=== PATIENT | female | born 1975 | race Caucasian/White ===

== ENCOUNTER 2018-12-09 08:08 | Emergency (ER) | payer OTHER ==
--- NOTE | 2018-12-09 09:41 | EDPHYS ---
Physician Documentation [facility] Name: Maddie Briones Age: 43 yrs Sex: Female : 1975 Arrival Date: 12/09/2018 Time: 08:11 Bed 14 Private MD: Oscar Morales ED Physician Chinmay Mccann HPI: 12/09 08:32 This 43 yrs old Female presents to ER via Unassigned with complaints of Left pm1 Ankle Injury. 08:32 The patient presents with pain. The complaints affect the left ankle. Onset: The pm1 symptoms/episode began/occurred 2 week(s) ago. Context: The problem was sustained at home, resulted from a mis-step by the patient, step, The mechanism of injury is unknown. The patient can partially bear weight on the affected extremity. the patient is able to ambulate. Associated signs and symptoms: Pertinent positives: swelling, Pertinent negatives: fever, numbness, tingling. Modifying factors: the symptoms are aggravated by weight bearing. Severity of symptoms: in the emergency department the symptoms are unchanged. The patient has not experienced similar symptoms in the past. The patient has not recently seen a physician, the patient's primary care provider is Dr. Morales. Patient stepped down a step and her foot slipped forward. She landed on her knees and buttocks with her lower legs folded beneath her. had pain to bilateral knees and right ankle/foot that have resolved but left ankle pain persists. No head injury, headache, LOC, neck pain. Historical: - Allergies: 08:36 No Known Allergies; ph - Home Meds: 08:36 montelukast 10 mg oral tab 1 tab once daily [Active]; fenofibrate 54 mg oral tab 1 tab ph once daily [Active]; Rebecca 180 mg Oral tab 1 tab once daily [Active]; Calci-Chew Oral [Active]; - PMHx: 08:36 Hypertension; ph - Immunization history:: Adult Immunizations unknown. - Social history:: Smoking status: Patient/guardian denies using tobacco. - Ebola Screening: : No symptoms or risks identified at this time. ROS: 08:35 Constitutional: Negative for fever, chills, and weight loss, Eyes: Negative for injury, pm1 pain, redness, and discharge, ENT: Negative for injury, pain, and discharge, Neck: Negative for injury, pain, and swelling, Cardiovascular: Negative for chest pain, palpitations, and edema, Respiratory: Negative for shortness of breath, cough, wheezing, and pleuritic chest pain, Abdomen/GI: Negative for abdominal pain, nausea, vomiting, diarrhea, and constipation, Back: Negative for injury and pain, : Negative for injury, bleeding, discharge, and swelling. 08:35 Skin: Negative for injury, rash, and discoloration, Neuro: Negative for headache, weakness, numbness, tingling, and seizure. 08:35 MS/extremity: Positive for pain, of the left lateral ankle, Negative for decreased range of motion, deformity. Exam: 08:35 Constitutional: This is a well developed, well nourished patient who is awake, alert, pm1 and in no acute distress. Head/Face: Normocephalic, atraumatic. Eyes: Pupils equal round and reactive to light, extra-ocular motions intact. Lids and lashes normal. Conjunctiva and sclera are non-icteric and not injected. Cornea within normal limits. Periorbital areas with no swelling, redness, or edema. ENT: Nares patent. No nasal discharge, no septal abnormalities noted. Tympanic membranes are normal and external auditory canals are clear. Oropharynx with no redness, swelling, or masses, exudates, or evidence of obstruction, uvula midline. Mucous membranes moist. Neck: Trachea midline, no thyromegaly or masses palpated, and no cervical lymphadenopathy. Supple, full range of motion without nuchal rigidity, or vertebral point tenderness. No Meningismus. Chest/axilla: Normal chest wall appearance and motion. Nontender with no deformity. No lesions are appreciated. Cardiovascular: Regular rate and rhythm with a normal S1 and S2. No gallops, murmurs, or rubs. Normal PMI, no JVD. No pulse deficits. Respiratory: Lungs have equal breath sounds bilaterally, clear to auscultation and percussion. No rales, rhonchi or wheezes noted. No increased work of breathing, no retractions or nasal flaring. Abdomen/GI: Soft, non-tender, with normal bowel sounds. No distension or tympany. No guarding or rebound. No evidence of tenderness throughout. Back: No spinal tenderness. No costovertebral tenderness. Full range of motion. Skin: Warm, dry with normal turgor. Normal color with no rashes, no lesions, and no evidence of cellulitis. 08:35 Musculoskeletal/extremity: Extremities: grossly normal except: noted in the left lateral ankle: swelling, tenderness. 08:35 Neuro: Orientation: is normal, Motor: is normal, moves all fours. Vital Signs: 08:33 BP 167 / 109; Pulse 91; Resp 18; Temp 98.4; Pulse Ox 96% on R/A; ph 09:13 BP 155 / 88; Pulse 86; Resp 18; Pulse Ox 97% on R/A; ph Procedures: 10:15 Splinting: Splint applied to left ankle using Orthoglass splint, applied by tech. pm1 Examined by me, post splint application: neurovascular intact, 2+ distal pulses palpable, brisk capillary refill noted, Patient tolerated well. MDM: 08:25 Patient medically screened. pm1 09:37 Data reviewed: vital signs. Data interpreted: Pulse oximetry: on room air is 97 %. pm1 Interpretation: normal. Counseling: I had a detailed discussion with the patient and/or guardian regarding: the historical points, exam findings, and any diagnostic results supporting the discharge/admit diagnosis, radiology results, the need for outpatient follow up, for definitive care, a orthopedic surgeon, to return to the emergency department if symptoms worsen or persist or if there are any questions or concerns that arise at home. 04 08:31 Order name: Ankle Left 3 View XRAY; Complete Time: 10:05 pm1 04 09:37 Order name: Splint - Ankle: Orthoglass: Stirrup; Complete Time: 09:46 pm1 12/09 09:37 Order name: Splint - Ankle: Posterior; Complete Time: 09:45 pm1 Administered Medications: No medications were administered Disposition: 12/09/18 09:40 Discharged to Home. Impression: Oblique fracture of distal left fibula with minimal displacement. - Condition is Stable. - Discharge Instructions: Cast or Splint Care, Adult, Fibular Ankle Fracture Treated With or Without Immobilization, Adult, How to Use a Walker. - Prescriptions for Tylenol- Codeine #3 300-30 mg Oral Tablet - take 2 tablets by ORAL route every 6 hours As needed; 20 tablet. - Medication Reconciliation Form, Thank You Letter, Antibiotic Education, Prescription Opioid Use form. - Follow up: Emergency Department; When: As needed; Reason: Worsening of condition. Follow up: Private Physician; When: 2 - 3 days; Reason: Recheck today's complaints, Continuance of care, Re-evaluation by your physician. - Problem is new. - Symptoms have improved. Addendum: 12/12/2018 08:18 Co-signature as Attending Physician, Chinmay Mccann MD I agree with the assessment and k dr plan of care. Signatures: Dispatcher [employer] EDMI Chinmay Mccann MD MD [facility] Christal Upton, RN RN ph Jeff Magallanes, GLASS SELECTOR GLASS SELECTOR pm1 Corrections: (The following items were deleted from the chart) 12/09 10:12 09:40 12/09/2018 09:40 Discharged to Home. Impression: Displaced fracture of lateral pm1 malleolus of left fibula. Condition is Stable. Forms are Medication Reconciliation Form, Thank You Letter, Antibiotic Education, Prescription Opioid Use. Follow up: Emergency Department; When: As needed; Reason: Worsening of condition. Follow up: Private Physician; When: 2 - 3 days; Reason: Recheck today's complaints, Continuance of care, Re-evaluation by your physician. Problem is new. Symptoms have improved. pm1 10:32 10:12 12/09/2018 09:40 Discharged to Home. Impression: Oblique fracture of distal left ph fibula with minimal displacement. Condition is Stable. Discharge Instructions: Cast or Splint Care, Adult, Fibular Ankle Fracture Treated With or Without Immobilization, Adult. Prescriptions for Tylenol-Codeine #3 300-30 mg Oral Tablet - take 2 tablets by ORAL route every 6 hours As needed; 20 tablet. and Forms are Medication Reconciliation Form, Thank You Letter, Antibiotic Education, Prescription Opioid Use. Follow up: Emergency Department; When: As needed; Reason: Worsening of condition. Follow up: Private Physician; When: 2 - 3 days; Reason: Recheck today's complaints, Continuance of care, Re-evaluation by your physician. Problem is new. Symptoms have improved. pm1
--- NOTE | 2018-12-09 09:41 | ER ---
Nurse's Notes [facility] Name: Maddie Briones Age: 43 yrs Sex: Female : 1975 Arrival Date: 12/09/2018 Time: 08:11 Bed 14 Private MD: Oscar Morales Diagnosis: Oblique fracture of distal left fibula with minimal displacement Presentation: 12/09 08:28 Presenting complaint: Mother states: Fell approx 10 days ago stepping down from a curb, ph landed on top of feet, states, " Her R foot feels better but her L one is still bothering her." Pt reports pain to top of L foot. Transition of care: patient was not received from another setting of care. Onset of symptoms. Risk Assessment: Do you want to hurt yourself or someone else? Patient reports no desire to harm self or others. Initial Sepsis Screen: Does the patient meet any 2 criteria? No. Patient's initial sepsis screen is negative. Does the patient have a suspected source of infection? No. Patient's initial sepsis screen is negative. Care prior to arrival: None. 08:28 Method Of Arrival: Wheelchair ph 08:28 Acuity: TERRANCE 4 ph Triage Assessment: 08:38 General: Appears in no apparent distress. comfortable, well groomed, Behavior is calm, ph cooperative, appropriate for age. Pain: Complains of pain in left lateral ankle and left medial ankle. Neuro: Level of Consciousness is awake, alert, obeys commands, Oriented to person, place, time, situation. Cardiovascular: Capillary refill < 3 seconds in bilateral fingers Patient's skin is warm and dry. Respiratory: Airway is patent Respiratory effort is even, unlabored, Respiratory pattern is regular, symmetrical. Derm: Skin is intact, is healthy with good turgor, Skin is pink, warm \\T\\ dry. Musculoskeletal: Circulation, motion, and sensation intact. Range of motion: intact in all extremities. Historical: - Allergies: 08:36 No Known Allergies; ph - Home Meds: 08:36 montelukast 10 mg oral tab 1 tab once daily [Active]; fenofibrate 54 mg oral tab 1 tab ph once daily [Active]; Rebecca 180 mg Oral tab 1 tab once daily [Active]; Calci-Chew Oral [Active]; - PMHx: 08:36 Hypertension; ph - Immunization history:: Adult Immunizations unknown. - Social history:: Smoking status: Patient/guardian denies using tobacco. - Ebola Screening: : No symptoms or risks identified at this time. Screenin:37 Abuse screen: Denies threats or abuse. Denies injuries from another. Nutritional ph screening: No deficits noted. Tuberculosis screening: No symptoms or risk factors identified. Fall Risk Fall in past 12 months (25 points). No secondary diagnosis (0 pts). No IV (0 pts). Ambulatory Aid- None/Bed Rest/Nurse Assist (0 pts). Gait- Normal/Bed Rest/Wheelchair (0 pts) Mental Status- Oriented to own ability (0 pts). Total Honeycutt Fall Scale indicates Low Risk Score (25-44 pts). Fall prevention measures have been instituted. Family Present and informed to notify staff if they need to leave bedside. Assessment: 09:14 General: No changes from previously documented assessment, see triage note. ph 10:30 Reassessment: Patient appears in no apparent distress at this time. Patient and/or ph family updated on plan of care and expected duration. Pain level reassessed. Patient is alert, oriented x 3, equal unlabored respirations, skin warm/dry/pink. Vital Signs: 08:33 BP 167 / 109; Pulse 91; Resp 18; Temp 98.4; Pulse Ox 96% on R/A; ph 09:13 BP 155 / 88; Pulse 86; Resp 18; Pulse Ox 97% on R/A; ph ED Course: 08:11 Patient arrived in ED. rg4 08:11 Oscar Morales DO is Private Physician. rg4 08:24 Jeff Magallanes NP is PHCP. pm1 08:24 Chinmay Mccann MD is Attending Physician. pm1 08:27 Christal Upton RN is Primary Nurse. ph 08:33 Triage completed. ph 08:36 Arm band placed on. ph 08:37 Patient has correct armband on for positive identification. Bed in low position. Call light in reach. Side rails up X 1. Pulse ox on. NIBP on. 09:17 X-ray completed. Portable x-ray completed in exam room. jr1 09:19 Ankle Left 3 View XRAY In Process Unspecified. EDMS 09:46 Orthoglass splint: Posterior short lleg splint applied on left leg. stirrup splint mh5 applied on left leg. 10:30 No provider procedures requiring assistance completed. Patient did not have IV access ph during this emergency room visit. Administered Medications: No medications were administered Outcome: 09:40 Discharge ordered by . pm1 10:32 Patient left the ED. ph 10:32 Discharged to home via wheelchair, with family. ph 10:32 Condition: good 10:32 Discharge instructions given to patient, family, Instructed on discharge instructions, follow up and referral plans. medication usage, Demonstrated understanding of instructions, follow-up care, medications, Prescriptions given X 1. Signatures: Dispatcher [employer] EDMS Lilia Dennis jr1 Christal Upton RN RN Jeff Arce, RERE REFURBISH TECHNICIAN pm1 Jacinta Fernández Maria [facility]
--- NOTE | 2018-12-09 09:45 | RAD REPORT ---
EXAM DESCRIPTION: RAD - Ankle Left 3 View - 12/09/2018 9:19 am CLINICAL HISTORY: Fall 10 days earlier, ankle pain COMPARISON: None. FINDINGS: Oblique fracture is present through the distal fibula. Early callus formation is identifia ble. No angulation deformity. There is 1- 2 mm of lateral displacement. Distal tibia is intact. There is very slight widening of the medial margin of the tibiotalar joint space. No joint effusion seen. No joint space narrowing. Patient appears to have a flatfoot configuration. This is not fully assesse d in the absence of weight-bearing. No plantar spur. IMPRESSION: Oblique fracture distal fibula with minimal displacement and no measurable angulation de formity. Early callus formation evident.
== END 2018-12-09 10:32 | disposition home or self-care (01) ==
LOC: ER 08:08
PROC: 2W3RX1Z Immobilization of Left Lower Leg using Splint (ICD-10-PCS; principal; 2018-12-09)
DX: S82.432A Displaced oblique fracture of shaft of left fibula, initial encounter for closed fracture (principal); W01.0XXA Fall on same level from slipping, tripping and stumbling without subsequent striking against object, initial encounter; Y93.9 Activity, unspecified; Y92.009 Unspecified place in unspecified non-institutional (private) residence as the place of occurrence of the external cause; I10 Essential (primary) hypertension
CPT/HCPCS: 99284

== ENCOUNTER 2022-04-30 10:20 | Emergency (ER) | payer OTHER ==
--- OUTSIDE RECORDS SUMMARY | 2022-04-30 10:22 | XMS REPORT | Continuity of Care Document ---
:1975 Author Organization [facility] t Address [address] [place] [address] Care Team Providers Name Role Phone Libby Levine Attending Clinician Unavailable Problems This patient has no known problems. Allergies, Adverse Reactions, Alerts Allergy Allergy Status Severity Reaction(s) Onset Inactive Treating Comm ents Source Name Type Date Date Clinician Lisinopr Adverse Active cough Common il Reaction [facility] Medications Ordered Filled Start Stop Current Ordering Indication Dosage Frequency Signature Comments Components Source Medication Medication Date Date Medication? Clinician (SIG) Name Name Glucometer Glucometer 2020-0 2020- No Libby one Common [id number] [facility] 00:00: 00:00 - [facility] :00 [facility] Calcium Calcium 2019-0 Yes Libby 1 tab Commo n 4-17 [facility] 00:00: - [facility] 00 [facility] Montelukast Montelukast Yes Libby take one Common Sodium Sodium Starr tablet by Spiri t mouth once - [facility] daily in [facility] Zyrtec Zyrtec Yes Libby 1 tablet Common Allergy Allergy Starr [facility] Losartan Losartan Yes Libby 1 tablet Co mmon Potassium Potassium St[facility] Spir it [facility] Fenofibrate Fenofibrate Yes Libby 1 tablet Common Starr with food [facility] Procedures This patient has no known procedures. Encounters Start End Encounter Admission Attending Care Care Encounter Source Date/Time Date/Time Type Type Clinicians Facility Department ID 2022-04-16 Outpatient CLOVER Levine [facility] [id number] Common 11:29:00 Libby [facility] 2021-10-07 Outpatient Starr, STLMLC ST[facility] [id number] Common 08:16:01 Libby [facility] 2021-09-24 Outpatient Starr, STLMLC STLMLC [id number] Common 14:30:58 Libby [facility] 2021-09-24 Outpatient Starr, STLMLC STLMLC [id number] Common 11:35:55 Libby [id number] [facility] 2021-09-24 Outpatient Starr, STLMLC STLMLC [id number] Common 11:20:48 Libby [id number] [facility] 2021-09-24 Outpatient Starr, STLMLC STLMLC [id number] Common 11:20:35 Libby [id number] [facility] 2021-09-24 Outpatient Starr, STLMLC STLMLC [id number] Common 10:58:46 Libby [id number] [facility] 2021-09-24 Outpatient Starr, STLMLC STLMLC [id number] Common 10:58:15 Libby [id number] [facility] 2022-04-20 2022-04-20 ambulatory STLMLC STL[facility] [id number] Common 00:00:00 00:00:00 [facility] 2022-03-23 2022-03-23 ambulatory STLMLC STLMLC [id number] Common 00:00:00 00:00:00 [facility] 2021-10-24 2021-10-24 ambulatory STLMLC STL[facility]C [id number] Common 00:00:00 00:00:00 [facility] 2021-10-07 2021-10-07 ambulatory STLMLC STLMLC [id number] Common 00:00:00 00:00:00 [facility] 2021-09-05 2021-09-05 ambulatory STLMLC STLMLC [id number] Common 00:00:00 00:00:00 [facility] 2021-03-05 2021-03-05 Outpatient STLMLC STLMLC [id number] Common 00:00:00 00:00:00 [facility] 2021-03-05 2021-03-05 Outpatient STLMLC STLMLC [id number] Common 00:00:00 00:00:00 [facility] 2021-02-26 2021-02-26 Outpatient STLMLC STLMLC [id number] Common 00:00:00 00:00:00 [facility] 2021-01-06 2021-01-06 Outpatient STLMLC STLMLC [id number] Common 00:00:00 00:00:00 [facility] 2020-10-04 2020-10-04 Outpatient STLMLC STLMLC [id number] Common 00:00:00 00:00:00 [facility] 2020-09-04 2020-09-04 Outpatient STLMLC STLMLC [id number] Common 00:00:00 00:00:00 [facility] 2020-04-05 2020-04-05 [facility] [id number] Common 09:40:00 09:40:00 [facility] [address] [facility] 2020-01-11 2020-01-11 [facility] [id number] Common 09:08:00 09:08:00 [facility] [address] [facility] 2020-01-04 2020-01-04 [facility] [id number] Common 08:40:00 08:40:00 [facility] [address] [facility] [address] [facility] 2019-10-06 2019-10-06 [facility] [id number] Common 10:13:00 10:13:00 [facility] [address] [facility] [address] [facility] 2019-09-05 2019-09-05 [facility] [id number] Common 13:20:00 13:20:[address] [place] [facility] [address] [facility] 2019-07-05 2019-07-05 [facility] [id number] Common 15:50:00 15:50:00 t Chaim riggins [facility] 2019-07-05 2019-07-05 [facility] [id number] Common 15:48:00 15:48:00 [place] [facility] 2019-06-08 2019-06-08 [facility] [id number] Common 11:00:00 11:00:00 [place] [place] [facility] 2018-12-14 2018-12-14 [facility] [id number] Common 14:30:00 14:30:00 [facility] Results This patient has no known results.
[2022-04-30] MEDS ORDERED: ASPIRIN 81 MG CHEWABLE TABLET ONE (10:39)
[2022-04-30 11:00] LABS: Absolute Lymphocytes (CBC) 3.2 K/uL (0.7-4.9); Hematocrit 42.1 % (36.0-45.0); Lymphocytes % 37.1 % (15.3-44.8); MPV 7.6 fL (7.6-11.3); RBC Red Blood Cell Count 5.08 M/uL (3.86-4.86)
--- NOTE | 2022-04-30 11:00 | RAD REPORT ---
EXAM DESCRIPTION: RAD - Chest Single View - 04/30/2022 10:43 am CLINICAL HISTORY: CHEST PAIN, shortness of breath COMPARISON: None TECHNIQUE: AP portable chest image was obtained 04/30/2022 10:43 am . FINDINGS: Lungs are clear. Heart and vasculature are normal. No measurable pleural effusion and no p neumothorax. No acute bony abnormality seen. No acute aortic findings suspected. IMPRESSION: No acute cardiopulmonary process.
[2022-04-30 11:12] LABS: BUN Blood Urea Nitrogen 10 mg/dL (7-18); Bicarbonate 29 mmol/L (21-32); Glomerular Filtration Rate 107 ml/min (=/>90); Glucose Level 122 mg/dL (74-106); Potassium 3.9 mmol/L (3.5-5.1); Sodium Level 141 mmol/L (136-145)
[2022-04-30 11:14] LABS: Troponin High Sensitivity < 3.0 pg/mL (<58.9)
[2022-04-30] MEDS ORDERED: MAGNES/ALUMIN/SIMET 30ML UCUP ONE (12:10)
[2022-04-30] MEDS ORDERED: LIDOCAINE VISCOUS 2% SOLN 15 ML UDC ONE (12:10)
[2022-04-30] MEDS ORDERED: FAMOTIDINE 20 MG TAB ONE (12:10)
--- NOTE | 2022-04-30 14:44 | ER ---
Nurse's Notes [facility] Name: Maddie Briones Age: 47 yrs Sex: Female : 1975 Arrival Date: 04/30/2022 Time: 10:21 Bed 5 Private MD: VELIA BLANCO Diagnosis: Chest pain, unspecified Presentation: 04/30 10:29 Chief complaint: Parent and/or Guardian states: Chest pain that started approx 30 ph minutes ago, was walking around store w/ mother, also c/o SOB and dizziness. Coronavirus screen: Vaccine status: Patient reports receiving the 2nd dose of the covid vaccine. Ebola Screen: No symptoms or risks identified at this time. Initial Sepsis Screen: Does the patient meet any 2 criteria? No. Patient's initial sepsis screen is negative. Does the patient have a suspected source of infection? No. Patient's initial sepsis screen is negative. Risk Assessment: Do you want to hurt yourself or someone else? Patient reports no desire to harm self or others. Onset of symptoms was April 30, 2022. 10:29 Method Of Arrival: Ambulatory ph 10:29 Acuity: TERRANCE 3 ph Triage Assessment: 10:31 General: Appears in no apparent distress. comfortable, Behavior is calm, cooperative, ph appropriate for age. Pain: Complains of pain in chest. Historical: - Allergies: 10:30 No Known Allergies; ph - Home Meds: 11:41 fenofibrate 54 mg Oral tab 1 tab once daily [Active]; montelukast 10 mg Oral tab 1 tab vg1 once daily [Active]; losartan oral [Active]; Calcium [Active]; Zyrtec Oral [Active]; turmeric oral [Active]; Vitamin C Oral [Active]; - PMHx: 10:30 Hypertension; ph - Immunization history:: Adult Immunizations up to date. - Social history:: Smoking status: Patient denies any tobacco usage or history of. Screenin:30 Abuse screen: Denies threats or abuse. Nutritional screening: No deficits noted. vg1 Tuberculosis screening: No symptoms or risk factors identified. Fall Risk No fall in past 12 months (0 pts). No secondary diagnosis (0 pts). IV access (20 points). Ambulatory Aid- None/Bed Rest/Nurse Assist (0 pts). Gait- Normal/Bed Rest/Wheelchair (0 pts) Mental Status- Oriented to own ability (0 pts). Total Honeycutt Fall Scale indicates No Risk (0-24 pts). Assessment: 10:30 General: Appears in no apparent distress. uncomfortable, Behavior is calm, cooperative. vg1 Pain: Complains of pain in anterior aspect of right upper chest Pain does not radiate. Pain currently is 7 out of 10 on a pain scale. Quality of pain is described as sharp, Pain began 1 hour ago. Neuro: Level of Consciousness is awake, alert, obeys commands, Oriented to person, place, time, situation, Reports dizziness. Cardiovascular: Patient's skin is warm and dry. Chest pain quality is sharp, is located in right began 1 hour prior to arrival. Respiratory: Reports shortness of breath Airway is patent Respiratory effort is even, unlabored. GI: Patient currently denies nausea, vomiting. : No signs and/or symptoms were reported regarding the genitourinary system. EENT: No signs and/or symptoms were reported regarding the EENT system. Derm: Skin is pink, warm \T\ dry. Musculoskeletal: Circulation, motion, and sensation intact. 11:40 Reassessment: Patient appears in no apparent distress at this time. Patient and/or vg1 family updated on plan of care and expected duration. Pain level reassessed. Patient is alert, oriented x 3, equal unlabored respirations, skin warm/dry/pink. denies CP stated, Epigastric pain; pt mother stated pt has a hernia and is concerned that may be the reason for pain; provider notified. 13:52 Reassessment: Patient appears in no apparent distress at this time. No changes from vg1 previously documented assessment. Patient and/or family updated on plan of care and expected duration. Pain level reassessed. Patient is alert, oriented x 3, equal unlabored respirations, skin warm/dry/pink. Vital Signs: 10:29 BP 141 / 89; Pulse 98; Resp 18; Temp 98.1; Pulse Ox 99% on R/A; Weight 89.81 kg; Height ph 5 ft. 10 in. (177.80 cm); 11:30 BP 122 / 86; Pulse 88; Resp 17; Pulse Ox 96% on R/A; vg1 12:30 BP 139 / 82; Pulse 111; Resp 24; Pulse Ox 95% on R/A; vg1 13:45 BP 127 / 91; Pulse 87; Resp 18; Pulse Ox 96% on R/A; vg1 15:15 BP 137 / 82; Pulse 80; Resp 16; Pulse Ox 99% on R/A; vg1 10:29 Body Mass Index 28.41 (89.81 kg, 177.80 cm) ph ED Course: 10:21 Patient arrived in ED. rg4 10:21 Gurwinder Zaldivar DO is Attending Physician. ms3 10:21 VELIA BLANCO is Private Physician. rg4 10:26 Anaya Fernández, RN is Primary Nurse. vg1 10:30 Triage completed. ph 10:30 Patient has correct armband on for positive identification. Bed in low position. Call vg1 light in reach. Side rails up X 1. Adult w/ patient. Client placed on continuous cardiac and pulse oximetry monitoring. NIBP monitoring applied. 10:30 Patient maintains SpO2 saturation greater than 95% on room air. vg1 10:31 Arm band placed on Patient placed in an exam room, on a stretcher. ph 10:45 XRAY Chest (1 view) In Process Unspecified. EDMS 10:50 D-Dimer Sent. kc6 10:50 Basic Metabolic Panel Sent. kc6 10:50 CBC with Diff Sent. kc6 10:51 Inserted saline lock: 20 gauge in right antecubital area, using aseptic technique. kc6 Blood collected. 10:51 EKG done, by physical science technician. kc6 13:53 Repeat lab(s) drawn. by sd, sent to lab. vg1 14:43 Conner Hernández MD is Referral Physician. ms3 15:16 No provider procedures requiring assistance completed. IV discontinued, intact, vg1 bleeding controlled, No redness/swelling at site. Pressure dressing applied. Administered Medications: 10:36 Drug: Aspirin Chewable Tablet 324 mg Route: PO; em6 12:07 Follow up: Response: No adverse reaction; Marked relief of symptoms vg1 12:02 Drug: Pepcid (famotidine) 20 mg Route: PO; vg1 13:52 Follow up: Response: No adverse reaction; No change in condition vg1 12:05 Drug: GI Cocktail without - (Maalox Suspension 30 ml, Lidocaine Liquid 2 % 15 vg1 ml) Route: PO; 13:52 Follow up: Response: No adverse reaction; No change in condition vg1 Medication: 10:30 VIS not applicable for this client. vg1 Outcome: 14:43 Discharge ordered by . ms3 15:16 Discharged to home ambulatory, with family. vg1 15:16 Condition: good 15:16 Discharge instructions given to patient, family, Instructed on discharge instructions, follow up and referral plans. Demonstrated understanding of instructions, follow-up care. 15:16 Patient left the ED. vg1 Signatures: Dispatcher [employer] EDMS Christal Upton RN RN kiet Fernández, Jacinta rg4 Anaya Fernández RN RN vg1 Gurwinder Zaldivar DO DO ms3 Dina Garner kc6 Melissa Hardy, RN RN em6
--- NOTE | 2022-04-30 14:44 | EDPHYS ---
Physician Documentation [facility] Name: Maddie Briones Age: 47 yrs Sex: Female : 1975 Arrival Date: 04/30/2022 Time: 10:21 Bed 5 Private MD: VELIA BLANCO ED Physician Gurwinder Zaldivar HPI: 04/30 10:30 This 47 yrs old Female presents to ER via Unassigned with complaints of Chest Pain, ms3 Dizziness. 10:30 47-year-old female with past medical history of being mentally challenged and ms3 prediabetes presents for chest pain that began 30 minutes prior to arrival while she was walking through [employer] with her mother. Patient states the pain is mild and described as being "hard." Patient endorses shortness of breath, diaphoresis. Patient denies weakness, nausea, vomiting. Patient denies alleviating or inciting factors.. Historical: - Allergies: 10:30 No Known Allergies; ph - Home Meds: 11:41 fenofibrate 54 mg Oral tab 1 tab once daily [Active]; montelukast 10 mg Oral tab 1 tab vg1 once daily [Active]; losartan oral [Active]; Calcium [Active]; Zyrtec Oral [Active]; turmeric oral [Active]; Vitamin C Oral [Active]; - PMHx: 10:30 Hypertension; ph - Immunization history:: Adult Immunizations up to date. - Social history:: Smoking status: Patient denies any tobacco usage or history of. ROS: 10:30 Constitutional: Negative for fever, and chills. ms3 10:30 Abdomen/GI: Negative for abdominal pain, nausea, vomiting, diarrhea, and constipation, Skin: Negative for injury, rash, and discoloration. 10:30 Cardiovascular: Positive for chest pain. 10:30 Respiratory: Positive for shortness of breath. 10:30 All other systems are negative. Exam: 10:28 ECG was reviewed by the Attending Physician. ms3 10:30 Constitutional: This is a well developed, well nourished patient who is awake, alert, ms3 and in no acute distress. Head/Face: Normocephalic, atraumatic. Neck: Trachea midline, no cervical lymphadenopathy. Supple, full range of motion without nuchal rigidity, or vertebral point tenderness. No Meningismus. Chest/axilla: Normal chest wall appearance and motion. Nontender with no deformity. Cardiovascular: Regular rate and rhythm with a normal S1 and S2. No gallops, murmurs, or rubs. Normal PMI, no JVD. No pulse deficits. Respiratory: Lungs have equal breath sounds bilaterally, clear to auscultation and percussion. No rales, rhonchi or wheezes noted. No increased work of breathing, no retractions or nasal flaring. Abdomen/GI: Soft, non-tender, with normal bowel sounds. No distension or tympany. No guarding or rebound. No evidence of tenderness throughout. Skin: Warm, dry with normal turgor. Normal color with no rashes, no lesions, and no evidence of cellulitis. MS/ Extremity: Pulses equal, no cyanosis. Neurovascular intact. Full, normal range of motion. Psych: Awake, alert, with orientation to person, place and time. Behavior, mood, and affect are within normal limits. Vital Signs: 10:29 BP 141 / 89; Pulse 98; Resp 18; Temp 98.1; Pulse Ox 99% on R/A; Weight 89.81 kg; Height ph 5 ft. 10 in. (177.80 cm); 11:30 BP 122 / 86; Pulse 88; Resp 17; Pulse Ox 96% on R/A; vg1 12:30 BP 139 / 82; Pulse 111; Resp 24; Pulse Ox 95% on R/A; vg1 13:45 BP 127 / 91; Pulse 87; Resp 18; Pulse Ox 96% on R/A; vg1 15:15 BP 137 / 82; Pulse 80; Resp 16; Pulse Ox 99% on R/A; vg1 10:29 Body Mass Index 28.41 (89.81 kg, 177.80 cm) ph MDM: 10:29 Patient medically screened. ms3 10:30 Differential diagnosis: abnormal EKG, acute myocardial infarction, coronary artery ms3 disease chest wall pain, pneumonia, pulmonary embolus. 10:32 Data interpreted: flat bed operator: rate is 95 beats/min, rhythm is normal sinus rhythm, ms3 regular, with no ectopy, Interpretation: normal rate, normal rhythm. 15:35 HEART Score: History: Slightly Suspicious (0), ECG: Normal (0), Age: > 45 and < 65 ms3 years (1), Risk Factors: 1 or 2 risk factors (1), Troponin: < or = 1 x Normal Limit (0), Total Score = 2. The patient was given aspirin in the Emergency Department. Data reviewed: vital signs, nurses notes, lab test result(s), EKG, radiologic studies, and as a result, I will discharge patient. Counseling: I had a detailed discussion with the patient and/or guardian regarding: the historical points, exam findings, and any diagnostic results supporting the discharge/admit diagnosis, lab results, radiology results, the need for outpatient follow up, to return to the emergency department if symptoms worsen or persist or if there are any questions or concerns that arise at home. Special discussion: Based on the patient's history, exam, and Dx evaluation, there is no indication for emergent intervention or inpatient Tx. It is understood by the patient/guardian that if the Sx's persist or worsen they need to return immediately for re-evaluation. ED course: Discussed labs and repeat troponin, chest x-ray, EKG with patient and her mother. Patient to follow-up with cardiology within 48 hours as discussed. All questions were answered. Return precautions discussed include worsening symptoms, or any other concerns. On reevaluation patient symptoms have improved, patient is in no apparent distress, nontoxic-appearing, ambulatory in emergency department, speaking full sentences.. 04/30 10:24 Order name: Basic Metabolic Panel; Complete Time: 11:35 ms3 04/30 10:24 Order name: CBC with Diff; Complete Time: 11:35 ms3 04/30 10:24 Order name: Troponin HS; Complete Time: 11:35 ms3 04/30 10:24 Order name: XRAY Chest (1 view); Complete Time: 11:35 ms3 04/30 10:29 Order name: D-Dimer; Complete Time: 11:35 ms3 04/30 13:47 Order name: Troponin High Sensitivity; Complete Time: 14:41 vg1 04/30 10:24 Order name: EKG; Complete Time: 10:25 ms3 04/30 10:24 Order name: Cardiac monitoring; Complete Time: 10:46 ms3 04/30 10:24 Order name: EKG - Nurse/Tech; Complete Time: 10:34 ms3 04/30 10:24 Order name: IV Saline Lock; Complete Time: 10:46 ms3 04/30 10:24 Order name: Labs collected and sent; Complete Time: 10:46 ms3 04/30 10:24 Order name: O2 Per Protocol; Complete Time: 10:34 ms3 04/30 10:24 Order name: O2 Sat Monitoring; Complete Time: 10:34 ms3 04/30 11:37 Order name: Repeat Cardiac Enzymes at: Repeat Troponin 3 hours after 1st; Complete ms3 Time: 13:53 EC:28 Rate is 84 beats/min. Rhythm is regular. QRS Burns is Normal. CO interval is normal. ms3 Clinical impression: Normal ECG. Interpreted by me. Reviewed by me. Administered Medications: 10:36 Drug: Aspirin Chewable Tablet 324 mg Route: PO; em6 12:07 Follow up: Response: No adverse reaction; Marked relief of symptoms vg1 12:02 Drug: Pepcid (famotidine) 20 mg Route: PO; vg1 13:52 Follow up: Response: No adverse reaction; No change in condition vg1 12:05 Drug: GI Cocktail without - (Maalox Suspension 30 ml, Lidocaine Liquid 2 % 15 vg1 ml) Route: PO; 13:52 Follow up: Response: No adverse reaction; No change in condition vg1 Disposition Summary: 04/30/22 14:43 Discharge Ordered Location: Home ms3 Condition: Stable ms3 Diagnosis - Chest pain, unspecified ms3 Followup: ms3 - With: Conner Hernández MD - When: 48 Hours - Reason: Recheck today's complaints, Re-evaluation by your physician Discharge Instructions: - Discharge Summary Sheet ms3 - Nonspecific Chest Pain, Adult ms3 Forms: - Medication Reconciliation Form ms3 - Thank You Letter ms3 - Antibiotic Education ms3 - Prescription Opioid Use ms3 Signatures: Dispatcher [employer] Christal Estes RN RN Anaya Rizzo, RN RN vg1 Gurwinder Zaldivar DO DO ms3 Melissa Hardy, RN RN em6
[2022-04-30 15:42] VITALS: TEMP 98.1
[2022-04-30 15:51] VITALS: BP 137/82; O2SAT 99
--- NOTE | 2022-05-01 07:21 | EKG ---
Test Date: 2022-04-30 Test Time: 10:28:56 Cashier Clerk: FRANCISCO MEASUREMENT RESULTS: Intervals: Rate: 84 MO: 142 QRSD: 86 QT: 372 QTc: 439 [place]: P: 53 MO: 142 QRS: 79 T: 73 INTERPRETIVE STATEMENTS: Normal sinus rhythm Normal ECG No previous ECG available for comparison Electronically Signed On 05-01-22 07:18:49 CDT by Morgan Mendez
== END 2022-04-30 15:16 | disposition home or self-care (01) ==
LOC: ER 10:20
DX: R07.9 Chest pain, unspecified (principal); I10 Essential (primary) hypertension
CPT/HCPCS: 36415; 71045; 80048; 84484; 85025; 85379; 93005; 99284

== ENCOUNTER 2024-05-05 06:30 | Day surgery (SDC) | payer OTHER ==
[2024-05-03 15:42] LABS: Absolute Basophils 0.1 K/uL (0-0.5); Absolute Eosinophils 0.1 K/uL (0-0.5); Absolute Lymphocytes (CBC) 3.9 K/uL (0.7-4.9); Absolute Monocytes 0.6 K/uL (0.1-1.3); Absolute Neutrophil 4.7 K/uL (1.8-8.0); Basophils % 0.6 % (0-1.3); Eosinophils % 0.8 % (0-4.4); Hematocrit 38.1 % (36.0-45.0); Hemoglobin 12.8 g/dL (12.0-15.0); Lymphocytes % 42.3 % (15.3-44.8); MCH 27.8 pg (27.0-35.0); MCHC 33.6 g/dL (32.0-36.0); MCV 82.7 fL (80-100); Monocytes % 6.2 % (3.3-12.3); Neutrophils % 50.1 % (41.7-73.7); Platelets 288 thou/uL (152-406); RBC Red Blood Cell Count 4.61 M/uL (3.86-4.86); Red Cell Distribution Width 13.4 % (12.1-15.2)
[2024-05-03 15:56] LABS: Anion Gap 5.2 mEq/L (5.0-15.0); Potassium 4.2 mEq/L (3.5-5.1)
--- NOTE | 2024-05-04 10:30 | EKG ---
Test Date: 2024-05-03 Test Time: 15:17:58 Engineering Inspector: KATHERIN MEASUREMENT RESULTS: Intervals: Rate: 75 FL: 152 QRSD: 96 QT: 366 QTc: 408 [place]: P: 62 FL: 152 QRS: 80 T: 79 INTERPRETIVE STATEMENTS: Normal sinus rhythm ST elevation, consider early repolarization, pericarditis, or injury Abnormal ECG Compared to ECG 04/30/2022 10:28:56 ST (T wave) deviation now present Electronically Signed On 05-04-24 10:29:51 CDT by Cristobal Lisa
[2024-05-05] MEDS ORDERED: Ringers Lactate 1,000 ML IV ONE (06:46)
[2024-05-05] MEDS ORDERED: BUPIVACAINE 0.25% PF 10 ML VIAL ONE (06:48)
[2024-05-05] MEDS ORDERED: propofoL 200 MG/20 ML VIAL IV ONE (06:55)
[2024-05-05] MEDS ORDERED: LIDOCAINE 1% MPF 5 ML VIAL ONE (06:55)
[2024-05-05] MEDS ORDERED: ONDANSETRON 4 MG/2 ML VIAL ONE (06:56)
[2024-05-05] MEDS: OFLOXACIN OPH 0.3%-5 ML BTL ONE (07:37)
--- NOTE | 2024-05-05 07:48 | P.OP ---
Date of Service: 05/05/24 Preoperative diagnosis: Chronic nonsuppurative left otitis media, mixed hearing loss, atrophic flaccid tympanic membrane with retraction Postoperative diagnosis: Same Procedure: bilateral myringotomy and tympanostomy tube placement Surgeon: Anitra Hawkins MD Shoulder Boner: None Anesthesia: General via inhalational mask Estimated blood loss: Nil Fluids/blood products: None Specimen: None Implants: Ros[place] T tubes Findings: Bilateral tympanic retraction with tympanic membrane atelectasis and left light raul serous middle ear fluid with scarring of the TM Indication: The patient had persistent symptoms and abnormal findings in spite of good medical management. Details of operation: The patient was brought to the operating room and placed under general anesthesia via laryngeal mask airway. The left ear was visualized under the operating microscope with assistance of an ear speculum. Cerumen was removed from the canal using a wire curette. The canal was noted to be curved and somewhat torturous. The eardrum was retracted with moderate degree of atelectasis. A myringotomy incision was made in the anterior-inferior quadrant and serous fluid was aspirated from the middle ear space. A [place] T tube was positioned across the incision using an alligator forcep and pick. Ofloxacin drops were instilled into the middle ear and a cottonball was placed at the meatus. A similar procedure was performed on the right side. Cerumen was removed from the canal using a wire curette. The canal was noted to be curved and somewhat torturous. The eardrum was retracted with a moderate degree of atelectasis. A myringotomy incision was made in the anterior-inferior quadrant and no fluid was aspirated from the middle ear space. A [place] T tube was positioned across the incision using an alligator forcep and pick. Ofloxacin drops were instilled into the middle ear and a cottonball was placed at the meatus. The procedure was concluded and the patient was awakened from anesthesia and transported to the recovery room in stable condition. Disposition the patient will be discharged home later today in the care of their family and follow-up with Dr. Hawkins's office in approximately 1 to 2 weeks.
[2024-05-05 08:40] VITALS: BP 122/68; TEMP 97.4; O2SAT 95
== END 2024-05-05 08:43 | disposition home or self-care (01) ==
LOC: OR 06:30
PROVIDERS: ATTEND Otolaryngology
PROC: 099570Z Drainage of Right Middle Ear with Drainage Device, Via Natural or Artificial Opening (ICD-10-PCS; 2024-05-05)
PROC: 099670Z Drainage of Left Middle Ear with Drainage Device, Via Natural or Artificial Opening (ICD-10-PCS; principal; 2024-05-05 07:30)
DX: H65.492 Other chronic nonsuppurative otitis media, left ear (principal); H90.6 Mixed conductive and sensorineural hearing loss, bilateral; H73.819 Atrophic flaccid tympanic membrane, unspecified ear
CPT/HCPCS: 93005; 85025; 80048; 36415; 69436; J2704; J2001; J2405; J7120